=== PATIENT | female | born 1955 | race Caucasian/White ===

== ENCOUNTER → 2024-04-10 12:33 | Outpatient (REF) | payer OTHER, SELFPAY | LOC: WDC 12:33 | PROVIDERS: ATTENDING PHYSICIAN Nurse Practitioner Family | DX: Z12.31 Encounter for screening mammogram for malignant neoplasm of breast (principal) | CPT/HCPCS: 77063; 77067 ==

== ENCOUNTER → 2025-04-11 12:10 | Outpatient (REF) | payer OTHER, SELFPAY | LOC: WDC 12:10 | PROVIDERS: ATTENDING PHYSICIAN Nurse Practitioner Family | DX: Z12.31 Encounter for screening mammogram for malignant neoplasm of breast (principal) | CPT/HCPCS: 77063; 77067 ==